=== PATIENT | male | born 1940 | race Caucasian/White ===

== ENCOUNTER 2018-03-20 14:03 | Observation (INO) | payer OTHER, MEDICARE ==
[2018-03-20] VITALS (10 sets, daily range): BP systolic 108–143; BP diastolic 55–73
[~2018-03-20] VITALS: Ht 177.8 cm; Wt 92.4 kg
[~2018-03-20 14:03] MED LIST: ADVAIR 100/501 DISK IH; ADVAIR 250/501 DISK IH; ADVIL200 MG PO; AMLODIPINE BES2.5 MG PO; ASPIRIN81 M1 PO; Amaryl PO; Aspirin E.C. PO; BENADRYL50 MG PO; CEFTIN500 MG PO; CENTRUM COMPLE1 EACH PO; CORTIZONE-1057 GM TP; COUMADIN3 MG PO; COZAAR100 MG PO; Diflucan PO; ECOTRIN325 MG PO; FLUOXETINE HCL40 MG PO; GLIMEPIRIDE1 MG PO; HYDROCODON-ACE1 EAC7 PO; LIPITOR20 MG PO; LISINOPRIL20 MG PO; LOPERAMIDE2 MG PO; Levaquin PO; MIRAPEX ER1.5 MG PO; MIRAPEX1.5 MG PO; OMEGA-31000 M1 PO; OMEPRAZOLE40 M1 PO; OXYCODONE HCL5 MG PO; PRAMIPEXOLE DI1.5 M1 PO; PREDNISONE10 MG PO; PRILOSEC OTC20 MG PO; PROAIR HFA8.5 GM IH; PROZAC40 MG PO; PROzac PO; STOOL SOFTENER100 M1 PO; THERAPEUTIC-M1 EAC3 PO; TYLENOL REGULA325 MG PO; VITAMIN B-650 M1 PO; VITAMIN C1000 MG PO; predniSONE PO
[2018-03-20 15:15] LABS: HEMATOCRIT 18.8 % (38.0-50.0); MCH 20.7 PG (29.0-34.0); MCHC 29.8 G/DL (30.0-36.0); MCV 69.6 FL (86-99); NRBC (%) 0.2 /100 WBC (0-0); PLATELET COUNT 326 K/uL (156-360); RBC DIS.WIDTH-CV 22.2 % (11.8-14.6); WHITE BLOOD COUNT 11.2 K/uL (4.1-10.2)
[2018-03-20 15:16] LABS: CHLORIDE 103 mEq/L (99-109); HEMOGLOBIN 5.6 G/DL (12.5-16.6); POTASSIUM 3.8 mEq/L (3.7-5.4); SODIUM 138 mEq/L (136-147)
[2018-03-20 15:18] LABS: GLUCOSE 110 mg/dL (70-99)
[2018-03-20 15:22] LABS: CREATININE 1.4 mg/dL (0.6-1.3); GFR ESTIMATE (CALCULATED) 52 mL/min/ (58.99-99999); UREA NITROGEN (BUN) 20 mg/dL (9-23)
[2018-03-20 16:11] LABS: TROP-I INTERPRETATION NEGATIVE; TROPONIN-I < 0.01 ng/mL (0.0-0.30)
[2018-03-20] MEDS ORDERED: MIRAPEX1.5 MG PO (16:34)
[2018-03-20] MEDS ORDERED: BREO ELLIPTA 21 EACH IH (16:35)
[2018-03-20] MEDS ORDERED: HYDROCHLOROTHIA25 MG PO (16:35)
[2018-03-21] VITALS (7 sets, daily range): BP systolic 106–131; BP diastolic 57–71
[2018-03-21 02:55] LABS: HEMOGLOBIN 6.5 G/DL (12.5-16.6); MCV 73.9 FL (86-99)
[2018-03-21 09:52] LABS: HEMATOCRIT 26.2 % (38.0-50.0); HEMOGLOBIN 7.9 G/DL (12.5-16.6); MCH 22.8 PG (29.0-34.0); MCHC 30.2 G/DL (30.0-36.0); MCV 75.7 FL (86-99); NRBC (%) 0.2 /100 WBC (0-0); PLATELET COUNT 256 K/uL (156-360); RBC DIS.WIDTH-CV 21.3 % (11.8-14.6); WHITE BLOOD COUNT 9.5 K/uL (4.1-10.2)
[2018-03-21 09:53] LABS: HEMATOCRIT 26.2 % (38.0-50.0); MCH 23.1 PG (29.0-34.0); MCHC 30.5 G/DL (30.0-36.0); MCV 75.7 FL (86-99); PLATELET COUNT 254 K/uL (156-360); RBC DIS.WIDTH-CV 21.5 % (11.8-14.6); RBC DIS.WIDTH-SD 58.7 % (39-53); WHITE BLOOD COUNT 9.7 K/uL (4.1-10.2)
[2018-03-21 10:02] LABS: RED BLOOD COUNT 3.46 M/uL (4.00-5.50)
[2018-03-21 10:04] LABS: RED BLOOD COUNT 3.46 M/uL (4.00-5.50)
[2018-03-21 10:21] LABS: CHLORIDE 102 MEQ/L (99-109); CREATININE 1.3 MG/DL (0.6-1.3); GFR ESTIMATE (CALCULATED) 57 mL/min/ (58.99-99999); GLUCOSE 221 mg/dL (70-99); POTASSIUM 4.6 MEQ/L (3.7-5.4); SODIUM 136 MEQ/L (136-147); UREA NITROGEN (BUN) 17 mg/dL (9-23)
[2018-03-21] MEDS ORDERED: SUCRALFATE1 GM/10 ML PR (12:02)
[2018-03-21] MEDS ORDERED: CARAFATE1 GM PR (14:28)
== END 2018-03-21 14:43 | disposition home or self-care (01) ==
LOC: EME 14:03 → EDOF 15:51 → 5SOUTH 15:51 → ENRESERV 15:57 → 5SOUTH 17:17
PROVIDERS: Emergency Medicine; Student in an Organized Health Care Education/Training Program
PROC: 30233N1 Transfusion of Nonautologous Red Blood Cells into Peripheral Vein, Percutaneous Approach (ICD-10-PCS; principal; 2018-03-20)
DX: D50.0 Iron deficiency anemia secondary to blood loss (chronic) (principal); K62.7 Radiation proctitis; Z85.46 Personal history of malignant neoplasm of prostate; I10 Essential (primary) hypertension; K21.9 Gastro-esophageal reflux disease without esophagitis; F32.9 Major depressive disorder, single episode, unspecified; E11.9 Type 2 diabetes mellitus without complications; Z90.49 Acquired absence of other specified parts of digestive tract; Z77.22 Contact with and (suspected) exposure to environmental tobacco smoke (acute) (chronic); Z79.84 Long term (current) use of oral hypoglycemic drugs; G47.30 Sleep apnea, unspecified; J44.9 Chronic obstructive pulmonary disease, unspecified; G89.29 Other chronic pain; Z82.3 Family history of stroke; Z88.8 Allergy status to other drugs, medicaments and biological substances
CPT/HCPCS: 71046; 80048; 84484; 85014; 85018; 85027; 86850; 86900; 86901; 86920; 93005; 99202; G0378; J7040; P9016

== ENCOUNTER → 2018-03-28 | Outpatient (CLI) | payer OTHER, MEDICARE ==
[~2018-03-28] VITALS: Ht 177.8 cm; Wt 92.4 kg
[~2018-03-28] MED LIST changes: +BREO ELLIPTA 21 EACH IH; +CARAFATE1 GM PR; +HYDROCHLOROTHIA25 MG PO; -OMEPRAZOLE40 M1 PO; +PRILOSEC20 MG PO; +SUCRALFATE1 GM/10 ML PR
== END | disposition home or self-care (01) ==
LOC: AMB 11:30
PROVIDERS: Internal Medicine
PROC: 0W3P8ZZ Control Bleeding in Gastrointestinal Tract, Via Natural or Artificial Opening Endoscopic (ICD-10-PCS; principal; 2018-03-28)
DX: K62.7 Radiation proctitis (principal); I25.10 Atherosclerotic heart disease of native coronary artery without angina pectoris; K21.9 Gastro-esophageal reflux disease without esophagitis; E78.5 Hyperlipidemia, unspecified; I10 Essential (primary) hypertension; E11.9 Type 2 diabetes mellitus without complications; J44.9 Chronic obstructive pulmonary disease, unspecified; Z79.82 Long term (current) use of aspirin
CPT/HCPCS: 82948

== ENCOUNTER → 2018-04-25 | Outpatient (CLI) | payer OTHER, MEDICARE ==
[~2018-04-25] VITALS: Ht 180.3 cm; Wt 90.7 kg
[~2018-04-25] MED LIST changes: +COLACE100 MG PO; +FEROSUL325 MG PO; +WELLBUTRIN SR150 MG PO
== END | disposition home or self-care (01) ==
LOC: AMB 07:16
PROVIDERS: Internal Medicine
PROC: 0W3P8ZZ Control Bleeding in Gastrointestinal Tract, Via Natural or Artificial Opening Endoscopic (ICD-10-PCS; principal; 2018-04-25)
DX: K62.7 Radiation proctitis (principal); K92.1 Melena; D50.0 Iron deficiency anemia secondary to blood loss (chronic); Z85.46 Personal history of malignant neoplasm of prostate; I25.10 Atherosclerotic heart disease of native coronary artery without angina pectoris; I10 Essential (primary) hypertension; J45.909 Unspecified asthma, uncomplicated; K21.9 Gastro-esophageal reflux disease without esophagitis; E78.5 Hyperlipidemia, unspecified; E66.3 Overweight; Z68.30 Body mass index [BMI] 30.0-30.9, adult; R60.0 Localized edema
CPT/HCPCS: 82948